=== PATIENT | female | born 1955 | race Caucasian/White ===

== ENCOUNTER 2022-04-22 09:01 | Outpatient (CLI) | payer MEDICARE, BC, SELFPAY ==
--- NOTE | 2022-04-22 09:15 | CRLHL7_ITS ---
For Patients: As a result of the Century Cures Act, medical imaging exams and procedure reports are released immediately into your electronic medical record. You may view this report before your referring provider. If you have questions, please contact your health care provider. BILATERAL DIGITAL SCREENING MAMMOGRAM WITH COMPUTER-AIDED DETECTION AND TOMOSYNTHESIS, 04/22/2022 CLINICAL HISTORY: Routine screening exam. COMPARISON: 03/07/2021, 05/21/2020, 05/14/2020, 05/03/2019, 06/22/2018. TECHNIQUE: Digital mammogram in CC and MLO projections including computer-aided detection (CAD) and tomosynthesis. BREAST COMPOSITION: Heterogeneously dense, which could obscure detection of small masses. FINDINGS: RIGHT Breast: No suspicious findings. LEFT Breast: Nodular density within the LEFT breast retroareolar plane 5 cm from the nipple. This has increased in size and a repeat ultrasound is indicated to further evaluate this cystic lesion. IMPRESSION: LEFT breast asymmetry/mass. RECOMMENDATIONS: LEFT breast ultrasound recommended to follow-up the cyst size. [facility] will contact the patient for follow-up. BI-RADS Category 0: Incomplete: Need Additional Imaging Evaluation and/or Prior Mammograms for Comparison. Dictated by Bolivar De Guzman MD @ 04/22/2022 11:01:26 AM JR/Dictated by: Bolivar De Guzman MD @ 04/22/2022 11:01:00 AM (Electronically Signed)
== END 2022-04-22 09:02 | disposition home or self-care (01) ==
LOC: MAMMO 09:05
PROVIDERS: Visit Provider Emergency Medicine
DX: Z12.31 Encounter for screening mammogram for malignant neoplasm of breast (principal); N63.20 Unspecified lump in the left breast, unspecified quadrant; R92.2 Inconclusive mammogram
CPT/HCPCS: 77063; 77067

== ENCOUNTER 2022-04-24 15:30 | Outpatient (CLI) | payer MEDICARE, BC, SELFPAY ==
[2022-04-24 14:18] LABS: Chloride* 105 mmol/L (96-114); Potassium* 4.3 mmol/L (3.6-5.1); Sodium* 140 mmol/L (135-149)
[2022-04-24 14:21] LABS: Blood Urea Nitrogen* 19 mg/dL (7-30); Carbon Dioxide* 24 mmol/L (20-32); Cholesterol* 177 mg/dL (90-199); Creatinine* 0.9 mg/dL (0.5-1.5); Estimated Glomerular Filt Rate 71 ml/min; Glucose* 93 mg/dL (60-115)
[2022-04-24 14:22] LABS: Calcium* 9.6 mg/dL (8.4-10.6); HDL Cholesterol* 58 mg/dL (>=50); LDL Cholesterol Calculated 104 mg/dL (<100); Triglycerides* 74 mg/dL (40-149)
[2022-04-24 16:52] LABS: Hepatitis C Virus Antibody* Negative (Negative)
== END 2022-04-24 15:31 | disposition home or self-care (01) ==
PROVIDERS: PCP Emergency Medicine; Visit Provider Emergency Medicine
DX: E03.9 Hypothyroidism, unspecified (principal); Z13.1 Encounter for screening for diabetes mellitus; E78.5 Hyperlipidemia, unspecified
CPT/HCPCS: 80048; 80061; 84443; 86803

== ENCOUNTER 2022-04-28 10:57 | Outpatient (CLI) | payer MEDICARE, BC, SELFPAY ==
--- NOTE | 2022-04-28 11:15 | CRLHL7_ITS ---
For Patients: As a result of the Century Cures Act, medical imaging exams and procedure reports are released immediately into your electronic medical record. You may view this report before your referring provider. If you have questions, please contact your health care provider. LEFT BREAST ULTRASOUND, 04/28/2022 CLINICAL HISTORY: LEFT breast mass. COMPARISON: Mammogram 04/22/2022. TECHNIQUE: Real-time ultrasound imaging of LEFT breast with imaging documentation. FINDINGS: Targeted sonogram of LEFT breast at11 o`clock 5 cm from the nipple performed. In this location, there is a simple circumscribed anechoic cyst with increased through-transmission measuring 1.0 x 0.7 x 1.1 cm. IMPRESSION: Simple cyst in LEFT breast at 11 o`clock 5 cm from the nipple. No evidence of malignancy. RECOMMENDATIONS: Annual bilateral screening mammography. Results and recommendations were discussed with the patient at the time of the exam. BI-RADS Category 2: Benign A lay language report of this examination will be provided to the patient. Dictated by Bolivar De Guzman MD @ 04/28/2022 11:52:29 AM CRL:[email or web address] RD/Dictated by: Bolivar De Guzman MD @ 04/28/2022 11:52:00 AM (Electronically Signed)
== END 2022-04-28 10:58 | disposition home or self-care (01) ==
LOC: US 10:57
PROVIDERS: PCP Emergency Medicine; Visit Provider Emergency Medicine
DX: N63.20 Unspecified lump in the left breast, unspecified quadrant (principal); R92.8 Other abnormal and inconclusive findings on diagnostic imaging of breast
CPT/HCPCS: 76642

== ENCOUNTER 2023-03-18 08:41 | Outpatient (CLI) | payer MEDICARE, BC, SELFPAY | END 2023-03-18 08:42 | disposition home or self-care (01) | PROVIDERS: PCP Emergency Medicine; Visit Provider Emergency Medicine | DX: E03.9 Hypothyroidism, unspecified (principal); E78.5 Hyperlipidemia, unspecified; Z13.1 Encounter for screening for diabetes mellitus | CPT/HCPCS: 80048; 80061; 84443 ==

== ENCOUNTER 2023-03-24 14:42 | Outpatient (CLI) | payer MEDICARE, BC, SELFPAY ==
--- NOTE | 2023-03-24 15:00 | CRLHL7_ITS ---
For Patients: As a result of the Century Cures Act, medical imaging exams and procedure reports are released immediately into your electronic medical record. You may view this report before your referring provider. If you have questions, please contact your health care provider. BILATERAL SCREENING MAMMOGRAM WITH COMPUTER-AIDED DETECTION AND TOMOSYNTHESIS TECHNIQUE: CC and MLO views were obtained. These mammographic images have been obtained using full-field digital technique. These mammographic images were interpreted with the benefit of computer-aided detection. Breast Tomosynthesis was used in this interpretation. COMPARISON FILM: 04/22/22, 03/07/21, 05/14/20. FINDINGS: The breasts are heterogeneously dense, which may obscure small masses IMPRESSION: There is no radiographic evidence for malignancy. ASSESSMENT: BI-RADS Category 2: Benign RECOMMENDATION: Routine screening mammogram in 1 year. A lay language report of this examination will be provided to the patient. Bolivar De Guzman M.D. Diagnostic Radiologist [email or web address] Transcribed: 1:22 pm DW/Dictated by: Bolivar De Guzman MD @ 03/26/2023 1:01:00 PM (Electronically Signed)
== END 2023-03-24 14:43 | disposition home or self-care (01) ==
LOC: MAMMO 14:42
PROVIDERS: PCP Emergency Medicine; Visit Provider Emergency Medicine
DX: Z12.31 Encounter for screening mammogram for malignant neoplasm of breast (principal); R92.2 Inconclusive mammogram
CPT/HCPCS: 77063; 77067

== ENCOUNTER 2024-03-31 08:42 | Outpatient (CLI) | payer MEDICARE, BC, SELFPAY | END 2024-03-31 08:43 | disposition home or self-care (01) | PROVIDERS: PCP Emergency Medicine; Visit Provider Emergency Medicine | DX: Z00.00 Encounter for general adult medical examination without abnormal findings (principal); E03.9 Hypothyroidism, unspecified; E78.5 Hyperlipidemia, unspecified; Z13.1 Encounter for screening for diabetes mellitus | CPT/HCPCS: 80048; 80061; 84443 ==

== ENCOUNTER 2024-04-20 13:40 | Outpatient (CLI) | payer MEDICARE, BC, SELFPAY ==
--- NOTE | 2024-04-20 14:00 | CRLHL7_ITS ---
For Patients: As a result of the Century Cures Act, medical imaging exams and procedure reports are released immediately into your electronic medical record. You may view this report before your referring provider. If you have questions, please contact your health care provider. BILATERAL SCREENING MAMMOGRAM WITH COMPUTER-AIDED DETECTION AND TOMOSYNTHESIS TECHNIQUE: CC and MLO views were obtained. These mammographic images have been obtained using full-field digital technique. These mammographic images were interpreted with the benefit of computer-aided detection. Breast Tomosynthesis was used in this interpretation. COMPARISON FILM: 03/24/23, 04/22/22, 03/07/21. FINDINGS: There are scattered areas of fibroglandular density IMPRESSION: There is no radiographic evidence for malignancy. ASSESSMENT: BI-RADS Category 2: Benign RECOMMENDATION: Routine screening mammogram in 1 year. A lay language report of this examination will be provided to the patient. Bolivar De Guzman M.D. Diagnostic Radiologist [email or web address] bM/Dictated by: Bolivar De Guzman MD @ 04/21/2024 8:34:00 AM (Electronically Signed)
== END 2024-04-20 13:41 | disposition home or self-care (01) ==
LOC: MAMMO 13:41
PROVIDERS: PCP Emergency Medicine; Visit Provider Emergency Medicine
DX: Z12.31 Encounter for screening mammogram for malignant neoplasm of breast (principal)
CPT/HCPCS: 77063; 77067

== ENCOUNTER 2025-02-21 14:44 | Outpatient (CLI) | payer MEDICARE, BC, SELFPAY ==
--- NOTE | 2025-02-21 15:00 | CRLHL7_ITS ---
For Patients: As a result of the Century Cures Act, medical imaging exams and procedure reports are released immediately into your electronic medical record. You may view this report before your referring provider. If you have questions, please contact your health care provider. INDICATION: BILATERAL SCREENING MAMMOGRAM, ASYMPTOMATIC 69 Y/O FEMALE COMPARISON: 04/20/2024, 03/24/2023, 04/22/2022 TECHNIQUE: Digital mammogram in CC and MLO projections including computer-aided detection (CAD) and tomosynthesis. BREAST COMPOSITION: There are scattered areas of fibroglandular density. FINDINGS: No suspicious findings. ASSESSMENT: BI-RADS 2 Benign RECOMMENDATION: Annual screening mammogram. A lay language report of this examination will be provided to the patient. Dictated by: Bolviar De Guzman MD @ 02/22/2025 13:32:21 (Electronically Signed)
== END 2025-02-21 14:45 | disposition home or self-care (01) ==
LOC: MAMMO 14:45
PROVIDERS: PCP Emergency Medicine; Visit Provider Emergency Medicine
DX: Z12.31 Encounter for screening mammogram for malignant neoplasm of breast (principal)
CPT/HCPCS: 77063; 77067

== ENCOUNTER 2025-02-28 08:23 | Outpatient (CLI) | payer MEDICARE, BC, SELFPAY | END 2025-02-28 08:24 | disposition home or self-care (01) | LOC: NFLDREF 03-02 12:59 | PROVIDERS: PCP Emergency Medicine; Referring Provider Emergency Medicine; Visit Provider Emergency Medicine | DX: E03.9 Hypothyroidism, unspecified (principal); E78.2 Mixed hyperlipidemia | CPT/HCPCS: 80053; 80061; 84443 ==

== ENCOUNTER 2025-04-04 09:30 | Outpatient (RCR) | payer MEDICARE, BC, SELFPAY ==
--- NOTE | 2025-03-07 15:19 | OT.OPOE ---
OT Outpatient Ortho Eval OT Outpatient Ortho Eval* Start: 03/07/25 09:20 Freq: Status: Active Protocol: Document 03/07/25 09:21 RANJIT (Rec: 03/07/25 12:49 RANJIT [id number]) E-signed By Mandi Ramirez, OTR/L, CLT OT OP Ortho Eval Details Complexity Complexity Medium Insurance Information Insurance Blue Cross/Blue Shield,Medicare B Information Outpatient History/Precautions Current Condition/Medical Diagnosis Referring Provider Kathleen Leiva, MPH, PA-C Medical Diagnoses S62.629A - Displaced fracture of middle phalanx of unspecified finger, initial encounter for closed fracture Treatment Diagnosis Stiffness of right ring finger: S60.444A Localized Edema, R60.0 Date of Onset 02/12/25 Other Conditions Avulsion fracture of middle phalanx of finger (Acute) DOI: 02/12/25. Closed treatment of a closed, acute, minimally displaced volar plate avulsion fracture 4th finger right. S62.629A - Displaced fracture of middle phalanx of unspecified finger, initial encounter for closed fracture (ICD-10) Finger pain, right (Acute) M79.644 - Pain in right finger(s) (ICD-10) Elevated blood pressure reading (Acute) normal at home 103-122/70-80 R03.0 - Elevated blood-pressure reading, without diagnosis of hypertension (ICD-10) Ankle pain, left (Acute) M25.572 - Pain in left ankle and joints of left foot ( ICD-10) Tubular adenoma (Acute) 2020 D36.9 - Benign neoplasm, unspecified site (ICD-10) Encounter for HCV screening test for low risk patient ( Acute) Z11.59 - Encounter for screening for other viral diseases (ICD-10) Screening for diabetes mellitus (Acute) Z13.1 - Encounter for screening for diabetes mellitus ( ICD-10) Severe acute respiratory syndrome coronavirus 2 (SARS- CoV-2) vaccine administered (Acute) Z23 - Encounter for immunization (ICD-10) Infection due to severe acute respiratory syndrome coronavirus 2 (SARS-CoV-2) (Acute) U07.1 - COVID-19 (ICD-10) Hypothyroidism (Acute) E03.9 - Hypothyroidism, unspecified (ICD-10) Hyperlipidemia (Acute) LDL goal less than 100 E78.5 - Hyperlipidemia, unspecified (ICD-10) Medical/Functional History Medical History Yes Reviewed Prior Level of Fully Indep with all self cares/IADLs Function/Mobility Social History Employment Status Retired 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 DOI: 02/12/25. Latosha jammed her finger while playing eRALOS3 square. Patient initially did not seek medical care, but instead brought up this injury during her routine annual exam with her PCP last week where imaging showed acute fracture. Patient was placed in an [place]um[place]am splint and was seen in the Ortho clinic on by [facility]. Pain Assessment Pain Pain Yes Pain Comments 1/10 and slightly move with bending of the finger. Goniometric Comments Goniometric Comments Goniometric Comments R hand, DIP 25 degrees of flexion, extension at 0 PIP flexion is almost full at 90 degrees and extension is 10 but is this most likely from the swelling MCP flexion 100 degrees Hand Pinch/Panel Monitor Strength Hand Pinch/Panel Monitor Strength Hand Pinch/Panel Monitor Left Hand,Right Hand Strength Left Hand Panel Monitor Strength 45 Position 1 in Elbow Flexion (lbs) Panel Monitor Strength 67 Position 2 in Elbow Extension (lbs) Lateral Pinch 15 Strength (lbs) Three Point Pinch ( 15 lbs) Right Hand Panel Monitor Strength 50 Position 1 in Elbow Flexion (lbs) Panel Monitor Strength 53 Position 2 in Elbow Extension (lbs) Lateral Pinch 14 Strength (lbs) Three Point Pinch ( 14 lbs) OT Objective Data Hand Hand Dominance Right Hand Function Right Hand (dominant UE) ring finger exam: FDS and FDP intact. Observations/Posture/Limb Appearance Objective No erythema, induration or other cutaneous changes. No Observations ecchymosis. Skin/Wounds/Edema Comments Moderate PIP joint swelling. Sensation Sensation Assessment CMS intact distally with 2+ Radial pulse. [place], warm Summary Comments digits with brisk capillary refill. Additional Information Objective Additional Imaging: Information 3-view right 4th digit images were reviewed with the patient dated 02/28/25. These show: an acute, mildly displaced avulsion fracture of the volar plate of the right ring finger middle phalanx. OT Problems Problems Problems Decreased Strength,Decreased Range of Motion,Pain, Lifting,Gripping,Pinching Problems Comments Reports that typing is very difficult. Other Problems Writing,Opening Containers,Dressing,Computer,Fasteners, Sleeping Patient Potential Good Assessment Assessment Assessment DOI: 02/12/25. Closed treatment of a closed, acute, minimally displaced volar plate avulsion fracture 4th finger right. She has minimal right ring finger pain, but worsens with making a fist. Limited motion/bend from her ring finger DIP, the ring finger PIP joint remains quite swollen. Denies numbness/tingling distally. Right hand dominant. Denies previous right hand/digit injuries. 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 Latosha and I reviewed her images together. This avulsion fracture can be treated non-operatively. On exam, her FDS and FDP tendons are intact and the PIP joint is stable to stress testing. Patient's injury occurred 3 weeks ago. I recommend she discontinue use of her finger splint. Occupational Therapy referral provided to work on swelling reduction techniques and right ring finger motion. Use of this digit/hand as tolerated. Avoid hyperextension of this digit and I recommend she avoid sports that could potentially involve a ball hitting this digit causing another hyperextension injury, such as tennis and Pickleball. Patient will f/u in 4-6 weeks for clinical re-evaluation and repeat 3- view right ring finger images prior to being seen. All questions were answered. Occupational Therapy Treatment Plan - OP Potential Rehabilitation Good Potential Barriers Barriers to goal None noted, patient is an excellent candidate for rehab attainment and anticipated to make excellent progress through skilled OT Set Goals Goals Set with Yes Patient Goals Goals Patient to tie shoes and button shirt independently using right hand for self-care [place] w/o pain. Patient to write legibly with her right hand to write checks to pay bills for independence with financial aid advisor tasks w/o pain. Increase patient?s PIP and DIP AROM to WFL in order to type/use the computer. Through skilled therapy treatment, patient will gain knowledge in order to promote healing of injury through the control of inflammation in order to return hand to normal, pain free function. Patient will actively participate in their HEP in order to promote R hand ring finger tendon gliding: decrease adhesions and promote strong union of tendons so that patient can resume hand to normal, pain-free function. Patient will be discharged from skilled therapy when able to return to sport specific movements (pickle ball ) & leisure activities without compensatory movements. Patient will be discharged from therapy once she has achieved >90% of normal AROM and Strength in the effected right UE (ring finger). Target Date 6 weeks Treatment Plan Treatment Plan Evaluation,Edema Control,Joint Mobilization,Manual Therapy,Ultrasound,Therapeutic Exercise,Self Care/Home Management,Education Expected Frequency 1x Week Expected Duration 8-10 Weeks Home Program Home Program Home Program Initiated Home Program Access Code: [email or web address] URL: [email or web address] Date: 03/07/2025 Prepared by: Mandi Ramirez Exercises - Seated Isolated Finger PIP Flexion AROM - 1 x daily - 7 x weekly - 3 sets - 10 reps - Seated Finger Composite Flexion Stretch - 1 x daily - 7 x weekly - 3 sets - 10 reps - Wrist Tendon Gliding - 1 x daily - 7 x weekly - 3 sets - 10 reps - Seated Finger DIP AROM - 1 x daily - 7 x weekly - 3 sets - 10 reps - Seated Single Finger Extension - 1 x daily - 7 x weekly - 3 sets - 10 reps - Finger Extension or EDC Glides: Pen Roll From Fist to Hook Fist - 1 x daily - 7 x weekly - 3 sets - 10 reps - [id number] Translation - 1 x daily - 7 x weekly - 3 sets - 10 reps - Hand Towel Scrunching - 1 x daily - 7 x weekly - 3 sets - 10 reps Certification Certification Statement I Certify That: Therapy Services Provided,Therapy Plan Established, Therapy Plan Reviewed Certification Information Clinic ID # [id number] Initial 03/07/25 Certification Date Recertification Due 06/05/25 Date Provider Signature Yes Required Provider Signature POC & Medical Necessity Shows Agreement With Physician NPI Number Write NPI# Here Physician Comment/ Comment or Changes Change Physician Signature Please Sign/Date Here & Date Requested
== END 2025-04-04 11:28 | disposition home or self-care (01) ==
PROVIDERS: PCP Emergency Medicine; Visit Provider Physician Assistant Surgical
DX: S62.624D Displaced fracture of middle phalanx of right ring finger, subsequent encounter for fracture with routine healing (principal); R60.0 Localized edema; Z51.89 Encounter for other specified aftercare
CPT/HCPCS: 97110; 97166; X5282